=== PATIENT | female | born 1940 | race Caucasian/White ===

== ENCOUNTER 2018-02-11 09:44 | Outpatient (REF) | payer MEDICARE, SELFPAY ==
[2018-02-11 21:10] LABS: Hemoglobin A1C 6.4 % (4.5-6.2)
[2018-02-11 21:45] LABS: ALT 30 U/L (12-78); AST 28 U/L (15-37); Alkaline Phosphatase 64 U/L (46-116); Anion Gap 11.4 mmol/L (3-11); BUN 17 mg/dL (7-18); Bilirubin, Total 0.4 mg/dL (0.2-1.0); CO2 24.6 mmol/L (21.0-32.0); CREATININE 1.04 mg/dL (0.55-1.02); Calcium 8.7 mg/dL (8.5-10.1); Chloride 101 mmol/L (98-107); Cholesterol 179 mg/dL (50-200); Estimated GFR 51.25 (mL/min/1.73m2); Glucose 113 mg/dL (70-100); HDL Cholesterol 44 mg/dL (40-60); LDL CHOLESTEROL 101 mg/dL (<100); Potassium 4.5 mmol/L (3.5-5.1); Sodium 137 mmol/L (136-145); Total Protein 6.9 g/dL (6.4-8.2); Triglyceride 205 mg/dL (30-150)
== END 2018-02-11 09:45 ==
LOC: NCHCN 09:44
PROVIDERS: PCP Family Medicine; Visit Provider Family Medicine
DX: E78.5 Hyperlipidemia, unspecified (principal); R73.09 Other abnormal glucose; E88.81 Metabolic syndrome and other insulin resistance; I10 Essential (primary) hypertension; E66.9 Obesity, unspecified
CPT/HCPCS: 80053; 80061; 83721; 83036

== ENCOUNTER 2018-05-27 09:29 | Outpatient (REF) | payer MEDICARE, SELFPAY ==
[2018-05-27 22:43] LABS: Anion Gap 9.6 mmol/L (3-11); BUN 19 mg/dL (7-18); CO2 26.4 mmol/L (21.0-32.0); CREATININE 0.93 mg/dL (0.55-1.02); Calcium 9.6 mg/dL (8.5-10.1); Chloride 98 mmol/L (98-107); Cholesterol 269 mg/dL (50-200); Estimated GFR 58.31 (mL/min/1.73m2); Glucose 107 mg/dL (70-100); HDL Cholesterol 42 mg/dL (40-60); LDL CHOLESTEROL 177 mg/dL (<100); Potassium 4.6 mmol/L (3.5-5.1); Sodium 134 mmol/L (136-145); Triglyceride 254 mg/dL (30-150)
== END 2018-05-27 09:49 ==
LOC: NCHCN 09:29
PROVIDERS: PCP Family Medicine; Visit Provider Family Medicine
DX: R73.09 Other abnormal glucose (principal); E78.5 Hyperlipidemia, unspecified; I10 Essential (primary) hypertension; E66.9 Obesity, unspecified
CPT/HCPCS: 80048; 80061; 83721; 83036

== ENCOUNTER 2019-05-27 10:16 | Outpatient (REF) | payer MEDICARE, SELFPAY ==
[2019-05-27 22:39] LABS: Anion Gap 10.4 mmol/L (3-11); BUN 18 mg/dL (7-18); CO2 26.6 mmol/L (21.0-32.0); CREATININE 0.94 mg/dL (0.55-1.02); Calcium 9.2 mg/dL (8.5-10.1); Chloride 100 mmol/L (98-107); Estimated GFR 57.44 (mL/min/1.73m2); Glucose 112 mg/dL (74-106); Potassium 4.6 mmol/L (3.5-5.1); Sodium 137 mmol/L (136-145)
[2019-05-27 22:52] LABS: Hemoglobin A1C 6.2 % (4.5-6.2)
[2019-05-28 10:18] LABS: Calculated LDL 170 mg/dL; Cholesterol 254 mg/dL (<200); HDL Cholesterol 44 mg/dL (40-60); Triglyceride 202 mg/dL (<150)
== END 2019-05-27 10:36 ==
LOC: NCHCN 10:16
PROVIDERS: PCP Family Medicine; Visit Provider Family Medicine
DX: E78.5 Hyperlipidemia, unspecified (principal); I10 Essential (primary) hypertension
CPT/HCPCS: 80048; 80061; 83036

== ENCOUNTER 2020-06-29 09:07 | Outpatient (REF) | payer MEDICARE, SELFPAY ==
[2020-06-29 22:45] LABS: Hemoglobin A1C 5.7 % (<5.7)
[2020-06-29 22:58] LABS: Anion Gap 8.4 mmol/L (3-11); BUN 22 mg/dL (7-18); CO2 27.6 mmol/L (21.0-32.0); Calcium 9.5 mg/dL (8.5-10.1); Calculated LDL 165 mg/dL (<100); Chloride 101 mmol/L (98-107); Cholesterol 255 mg/dL (<200); Glucose 102 mg/dL (74-106); HDL Cholesterol 50 mg/dL (40-60); Potassium 4.4 mmol/L (3.5-5.1); Sodium 137 mmol/L (136-145); Triglyceride 200 mg/dL (<150)
== END 2020-06-29 09:27 ==
LOC: NCHCN 09:07
PROVIDERS: PCP Family Medicine; Visit Provider Family Medicine
DX: I10 Essential (primary) hypertension (principal); R73.03 Prediabetes; E78.5 Hyperlipidemia, unspecified; E88.81 Metabolic syndrome and other insulin resistance
CPT/HCPCS: 80048; 80061; 83036

== ENCOUNTER 2020-11-14 14:09 | Outpatient (REF) | payer MEDICARE, SELFPAY ==
[2020-11-14 14:10] LABS: ALT 28 U/L (14-59); AST 21 U/L (15-37); Albumin 4.1 g/dL (3.4-5.0); Alkaline Phosphatase 65 U/L (46-116); Anion Gap 8.9 mmol/L (3-11); BUN 20 mg/dL (7-18); Bilirubin, Total 0.4 mg/dL (0.2-1.0); CO2 28.1 mmol/L (21.0-32.0); CREATININE 0.8 mg/dL (0.55-1.02); Calcium 9.5 mg/dL (8.5-10.1); Calculated LDL 92 mg/dL (<100); Chloride 101 mmol/L (98-107); Cholesterol 173 mg/dL (<200); Glucose 103 mg/dL (74-106); HDL Cholesterol 53 mg/dL (40-60); Potassium 4.6 mmol/L (3.5-5.1); Sodium 138 mmol/L (136-145); Total Protein 7.1 g/dL (6.4-8.2); Triglyceride 143 mg/dL (<150)
== END 2020-11-14 14:10 | disposition home or self-care (01) ==
LOC: NCHCN 14:09
PROVIDERS: PCP Family Medicine; Visit Provider Family Medicine
DX: E78.5 Hyperlipidemia, unspecified (principal)
CPT/HCPCS: 80053; 80061

== ENCOUNTER 2021-09-08 17:42 | Outpatient (REF) | payer MEDICARE, SELFPAY ==
[2021-09-08 16:39] LABS: ALT 30 U/L (14-59); AST 26 U/L (15-37); Albumin 4.2 g/dL (3.4-5.0); Alkaline Phosphatase 74 U/L (46-116); Anion Gap 10.4 mmol/L (3-11); BUN 20 mg/dL (7-18); Bilirubin, Total 0.3 mg/dL (0.2-1.0); CO2 26.6 mmol/L (21.0-32.0); CREATININE 0.9 mg/dL (0.55-1.02); Calcium 9.6 mg/dL (8.5-10.1); Calculated LDL 106 mg/dL (<100); Chloride 102 mmol/L (98-107); Cholesterol 198 mg/dL (<200); Glucose 104 mg/dL (74-106); HDL Cholesterol 52 mg/dL (40-60); Potassium 4.9 mmol/L (3.5-5.1); Sodium 139 mmol/L (136-145); Total Protein 7.5 g/dL (6.4-8.2); Triglyceride 203 mg/dL (<150)
[2021-09-08 16:41] LABS: Hemoglobin A1C 6.1 % (<5.7)
== END 2021-09-08 17:43 | disposition home or self-care (01) ==
LOC: NCHCN 17:42
PROVIDERS: PCP Family Medicine; Visit Provider Family Medicine
DX: E88.81 Metabolic syndrome and other insulin resistance (principal); R73.03 Prediabetes; I10 Essential (primary) hypertension; E78.5 Hyperlipidemia, unspecified
CPT/HCPCS: 80053; 80061; 83036

== ENCOUNTER 2022-01-22 18:26 | Outpatient (REF) | payer MEDICARE, SELFPAY ==
[2022-01-22 21:58] LABS: Abs Immature Grans 0.05 10^3/uL (0.0-0.06); Absolute Basophil Count 0.11 10^3/uL (0.0-0.2); Absolute Lymphocyte Count 4.96 10^3/uL (1.2-3.4); Absolute Monocyte Count 1.57 10^3/uL (0.1-0.8); Absolute Neutrophil Count 8.19 10^3/uL (1.2-6.7); Basophils % 0.7; Eosinophils % 1.7; HCT 39.9 % (36.0-46.0); HGB 13.6 g/dL (11.2-15.7); Immature Grans % 0.3; Lymphocytes % 32.8; MCH 31.6 pg (27.0-33.0); MCHC 34.1 % (32.0-36.0); MCV 93 fL (80-95); MPV 12.9 fL (8.0-11.0); Monocytes % 10.4; Neutrophils % 54.1; Platelet Count 171 10^3/uL (130-400); RBC 4.31 10^6/uL (3.93-5.22); RDW 13.1 % (11.7-14.6); RDW-SD 44.8 fL; WBC 15.13 10^3/uL (4.4-10.8)
[2022-01-22 22:03] LABS: Absolute Eosinophil Count 0.26 10^3/uL (0.0-0.7)
[2022-01-22 22:08] LABS: ALT 31 U/L (14-59); AST 29 U/L (15-37); Albumin 3.8 g/dL (3.4-5.0); Alkaline Phosphatase 59 U/L (46-116); Anion Gap 4.9 mmol/L (3-11); BUN 25 mg/dL (7-18); Bilirubin, Total 0.2 mg/dL (0.2-1.0); CO2 28.1 mmol/L (21.0-32.0); CREATININE 1.1 mg/dL (0.55-1.02); Calcium 9.2 mg/dL (8.5-10.1); Chloride 101 mmol/L (98-107); Estimated GFR 47.55 (mL/min/1.73m2); Glucose 120 mg/dL (74-106); Lipase 76 U/L (73-393); Potassium 4.6 mmol/L (3.5-5.1); Sodium 134 mmol/L (136-145)
[2022-01-22 22:25] LABS: Diff Comment Agrees w/ Instrument; RBC Morphology Normal
== END 2022-01-22 18:27 | disposition home or self-care (01) ==
LOC: NCHCN 18:26
PROVIDERS: PCP Family Medicine; Visit Provider Family Medicine
DX: K92.1 Melena (principal); R14.1 Gas pain; R14.0 Abdominal distension (gaseous); K21.9 Gastro-esophageal reflux disease without esophagitis
CPT/HCPCS: 80053; 83690; 85025

== ENCOUNTER 2022-01-24 18:58 | Outpatient (REF) | payer MEDICARE, SELFPAY ==
[2022-01-25 23:37] LABS: Campylobacter PCR Negative (Negative); Salmonella PCR Negative (Negative); Shiga Toxin PCR Negative (Negative); Shigella/Enteroinvasive Ecoli Negative (Negative)
== END 2022-01-24 18:59 | disposition home or self-care (01) ==
LOC: NCHCN 18:58
PROVIDERS: PCP Family Medicine; Visit Provider Family Medicine
DX: K92.1 Melena (principal); R14.0 Abdominal distension (gaseous); R14.1 Gas pain; K21.9 Gastro-esophageal reflux disease without esophagitis
CPT/HCPCS: 87505; 82272; 83630

== ENCOUNTER 2022-03-13 19:51 | Outpatient (REF) | payer MEDICARE, SELFPAY ==
[2022-03-13 14:23] LABS: ESR 28 mm/hr (0-30)
[2022-03-13 14:28] LABS: Anion Gap 7.4 mmol/L (3-11); BUN 19 mg/dL (7-18); C-Reactive Protein 0.65 mg/dL (0.0-0.3); CO2 27.6 mmol/L (21.0-32.0); CREATININE 1.1 mg/dL (0.55-1.02); Calcium 9.1 mg/dL (8.5-10.1); Chloride 98 mmol/L (98-107); Estimated GFR 50.17 (mL/min/1.73m2); Glucose 120 mg/dL (74-106); Potassium 4.1 mmol/L (3.5-5.1); Sodium 133 mmol/L (136-145)
== END 2022-03-13 19:52 | disposition home or self-care (01) ==
LOC: NCHCN 19:51
PROVIDERS: PCP Family Medicine; Visit Provider Family Medicine
DX: I10 Essential (primary) hypertension (principal); M35.3 Polymyalgia rheumatica
CPT/HCPCS: 80048; 85652; 86140

== ENCOUNTER 2022-04-12 13:20 | Outpatient (REF) | payer MEDICARE, SELFPAY ==
[2022-04-12 16:18] LABS: ESR 11 mm/hr (0-30)
[2022-04-12 16:30] LABS: C-Reactive Protein 0.11 mg/dL (0.0-0.3)
== END 2022-04-12 13:21 | disposition home or self-care (01) ==
LOC: NCHCN 13:20
PROVIDERS: PCP Family Medicine; Visit Provider Family Medicine
DX: M35.3 Polymyalgia rheumatica (principal)
CPT/HCPCS: 85652; 86140

== ENCOUNTER 2022-06-08 15:01 | Outpatient (REF) | payer MEDICARE, SELFPAY ==
[2022-06-08 16:34] LABS: ESR 9 mm/hr (0-30)
[2022-06-08 16:44] LABS: C-Reactive Protein 0.29 mg/dL (0.0-0.3)
== END 2022-06-08 15:02 | disposition home or self-care (01) ==
LOC: NCHCN 15:01
PROVIDERS: PCP Family Medicine; Visit Provider Family Medicine
DX: M35.3 Polymyalgia rheumatica (principal)
CPT/HCPCS: 85652; 86140

== ENCOUNTER 2022-09-20 15:39 | Outpatient (REF) | payer MEDICARE, SELFPAY ==
[2022-09-20 14:25] LABS: HCT 40.5 % (36.0-46.0); HGB 13.4 g/dL (11.2-15.7); MCH 32.3 pg (27.0-33.0); MCHC 33.1 % (32.0-36.0); MCV 98 fL (80-95); MPV 11.8 fL (8.0-11.0); Platelet Count 201 10^3/uL (130-400); RBC 4.15 10^6/uL (3.93-5.22); RDW 13.1 % (11.7-14.6); RDW-SD 46.8 fL
[2022-09-20 14:38] LABS: ESR 12 mm/hr (0-30)
[2022-09-20 15:19] LABS: ALT 37 U/L (14-59); AST 25 U/L (15-37); Alkaline Phosphatase 51 U/L (46-116); Anion Gap 8.9 mmol/L (3-11); BUN 20 mg/dL (7-18); Bilirubin, Total 0.3 mg/dL (0.2-1.0); CO2 26.1 mmol/L (21.0-32.0); CREATININE 0.9 mg/dL (0.55-1.02); Calcium 9.7 mg/dL (8.5-10.1); Chloride 102 mmol/L (98-107); Estimated GFR 63.83 (mL/min/1.73m2); Folate 15.4 ng/mL (8.6-20.0); Glucose 136 mg/dL (74-106); Potassium 4.8 mmol/L (3.5-5.1); Sodium 137 mmol/L (136-145); Total Protein 7.1 g/dL (6.4-8.2); Vitamin B12 587 pg/mL (193-986)
[2022-09-20 15:26] LABS: C-Reactive Protein 0.14 mg/dL (0.0-0.3)
[2022-09-20 17:09] LABS: Hemoglobin A1C 6.4 % (<5.7)
== END 2022-09-20 15:40 | disposition home or self-care (01) ==
LOC: NCHCN 15:39
PROVIDERS: PCP Family Medicine; Visit Provider Family Medicine
DX: R73.03 Prediabetes (principal); E78.5 Hyperlipidemia, unspecified; M35.3 Polymyalgia rheumatica; D75.89 Other specified diseases of blood and blood-forming organs; Z86.39 Personal history of other endocrine, nutritional and metabolic disease
CPT/HCPCS: 80053; 85027; 85652; 82607; 82746; 83036; 86140

== ENCOUNTER 2023-04-09 20:38 | Outpatient (REF) | payer MEDICARE, SELFPAY ==
--- OUTSIDE RECORDS SUMMARY | 2023-04-09 20:39 | XMS_ITS | CCD ---
Author Name Unknown Address [address] [place] [address] [id number] Organization Unknown Address [address] [place] [address] [phone] Care Team Providers Care Manager Of Procurement Name Role Phone NAVEEN REDMAN Attending Physician [phone] ALIDA LING Er Physician 1 [phone] SUNSHINE Estrada Registered Nurse [phone] Vital Signs Vital Sign Value Unit Date/Time Recent/Initial ? BMI (Body Mass Index) 28.91 kg/m^2 02/23/2022 08: 07 Initial VS Weight Measured 158.07 lbs 02/23/2022 08:07 Ini tial VS Height 62 in 02/23/2022 08:07 Initial VS BSA (Body Surface Area) 1.77 m^2 02/23/2022 0 8:07 Initial VS BP Systolic 132 mmHg 02/23/2022 08:07 Initial VS BP Diastolic 81 mmHg 02/23/2022 08:07 Initia l VS Respiratory Rate 99 bpm 02/23/2022 08:07 In itial VS Heart Rate 74 bpm 02/23/2022 08:07 Initial VS O2 % BldC Oximetry 100 % 02/23/2022 08:07 Initial VS Body Temperature 36 degrees 02/23/2022 08:07 In itial VS BP Systolic 141 mmHg 02/23/2022 14:00 Most Re cent VS BP Diastolic 59 mmHg 02/23/2022 14:00 Most R ecent VS Respiratory Rate 18 bpm 02/23/2022 14:[address] Recent VS Heart Rate 70 bpm 02/23/2022 14:00 Most Rec ent VS O2 % BldC Oximetry 97 % 02/23/2022 14:00 Most Recent VS Allergies Allergy Code Allergy Type Reaction Status ASPIRIN 0 Drug allergy Active Procedures Unknown or Not Available. History of Immunizations Unknown or Not Available. 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 2 BILIRUBIN TOTAL 1975-2 0.4 mg/dL L=0.0 H=1 .3 ALK. PHOS. 6768-6 70 U/L L=46 H=116 SGOT (AST) 1920-8 21 U/L L=15 H=37 SGPT (ALT) 1742-6 25 U/L L=12 H=78 TOTAL PROTEIN 2885-2 7.9 gm/dL L=6.0 H=8.0 ALBUMIN 1751-7 4.0 gm/dL L=3.4 H=5.0 AGE 81 years eGFR (non-Afr.Amer.) 88924-9 64 mL/min eGFR (Afr-Bangladeshi) 94661-4 77 mL/min MAGNESIUM SERUM* - Collect D ate/Time: 02/23/2022 08:38 Test Name Code Test Result Test Units Test Ref Rang e MAGNESIUM 93693-8 2.2 mg/dL L=1.8 H=2.4 TROPONIN HIGH SENSITIVITY* - Collect Date/Time: 02/23/2022 13:14 Test Name Code Test Result Test Units Test Ref Rang e TROPONIN HS 5.5 pg/mL L=0.0 H=60.4 Specimen seq. Random N/A TROPONIN HIGH SENSITIVITY* - Collect Date/Time: 02/23/2022 08:38 Test Name Code Test Result Test Units Test Ref Rang e TROPONIN HS 5.1 pg/mL L=0.0 H=60.4 Specimen seq. Random N/A CBC W/ DIFFERENTIAL* - Colle ct Date/Time: 02/23/2022 08:38 Test Name Code Test Result Test Units Test Ref Rang e WBC 6690-2 16.11 th/cmm L=5.00 H=10.00 NEUT % 72.4 % L=40.0 H=80.0 LYMPH % 15.8 % L=10.0 H=50.0 MONO % 12894-0 10.1 % L=2.0 H=12.0 EOS % 0.9 % L=0.0 H=8.0 BASO % 0.4 % L=0.0 H=3.0 IG % 2514-8 0.4 % L=0.0 H=1.1 NRBC % 69968-9 0.0 % L=0.0 H=0.0 NEUT abs count 751-8 11.7 th/cmm L=1.6 H=8. 4 LYMPH abs count 731-0 2.6 th/cmm L=1.5 H=4 .0 MONO abs count 742-7 1.6 th/cmm L=0.2 H=1. 0 EOS abs count 711-2 0.1 th/cmm L=0.0 H=0.5 BASO abs count 704-7 0.1 th/cmm L=0.0 H=0. 2 IG abs count 78230-4 0.1 th/cmm L=0.0 H=0.1 NRBC abs count 32254-5 0.0 mil/cmm L=0.0 H=0. 0 RBC 789-8 4.53 mil/cmm L=3.90 H=5.40 HEMOGLOBIN 718-7 14.2 gm/dL L=12.0 H=16.0 HEMATOCRIT 4544-3 42 % L=37 H=47 MCV 787-2 93 fL L=82 H=92 MCH 785-6 31.3 pg L=27.0 H=31.0 MCHC 786-4 33.6 % L=32.0 H=36.0 RDW-SD 788-0 45.1 fL L=39.0 H=49.0 PLATELET COUNT 777-3 393 th/cmm L=150 H=45 0 ANNIE COVID FLU RSV GENEXPE RT - Collect Date/Time: 02/23/2022 08:38 Test Name Code Test Result Test Units Test Ref Rang e COVID 81264-9 NEGATIVE N/A Normal: Negati ve INFLUENZA A DNA 95065-5 NEGATIVE N/A Normal: N egative INFLUENZA B DNA 59782-9 NEGATIVE N/A Normal: N egative RSV DNA 80158-5 NEGATIVE N/A Normal: Negati ve URINALYSIS WITH REFLEX CULT IF POSITIVE* - Collect Date/Time: 02/23/2022 11:35 Test Name Code Test Result Test Units Test Ref Rang e COLLECTION MODE: 22184-8 CLEAN CATCH N/A Color 5778-6 STRAW N/A yellow Appearance 5767-9 CLEAR N/A clear Glucose urine 65798-2 NEGATIVE N/A negative mg /dl Bilirubin 5770-3 NEGATIVE N/A negative Ketones 2514-8 NEGATIVE N/A negative mg/dl Spec gravity 5811-5 <=1.005 N/A 1.003 - 1.03 0 pH urine 2756-5 6.0 N/A 5.0 - 7.0 Protein 49367-9 NEGATIVE N/A negative mg/dl Urobilinogen 82027-3 0.2 N/A <or= 1 EU/dl Nitrite. 5802-4 NEGATIVE N/A negative Blood 5794-3 NEGATIVE N/A negative Leukocytes. TRACE N/A negative MICROSCOPIC INDICATED N/A WBCs. 62614-9 0-5 N/A 0-5 / hpf RBCs 17816-2 none N/A 0-5 / hpf Epith cells 29078-1 0-5 N/A 0-5 / hpf Cell types squamous N/A Crystals none N/A none Bacteria minimal N/A none Mucus 8247-9 none N/A none Casts 66022-0 none N/A none /lpf Active Medications Unknown or Not Available. Medications Administered During Visit Unknown or Not Available. Encounters Encounter Diagnosis Diagnosis Code Start Date Weakness R531 02/23/2022 Social History Smoking Status Code Start Date End Date Never smoker [id number] Patient Decision Aids Unknown or Not Available. Discharge Instructions You were admitted to [facility] on 02/23/2022 07:52 with a principal diagnosis of Weakness You had the following tests done:TROPONIN HIGH SENSITIVITY*URINALYSIS WITH REFLEX CULT IF POSITIVE*CBC W/ DIFFERENTIAL*COMPREHENSIVE METABOLIC PANEL (CMP)[facility] COVID FLU RSV GENEXPERTMAGNESIUM SERUM*TROPONIN HIGH SENSITIVITY* You were discharged from [facility] on 02/23/2022 16:00 Should you have any questions prior to discharge, please contact a member of your healthcare team. If you have left the hospital and have any questions, please contact your primary care physician. Chief Complaint and Reason For Visit Chief Complaint Date of Onset SOB Function Status Unknown or Not Available. Plan of Care Unknown or Not Available. Referral/Transition of Care Unknown or Not Available.
--- OUTSIDE RECORDS SUMMARY | 2023-04-09 20:40 | XMS_ITS | CCD ---
Author Name Unknown Address [address] [place] [address] [phone] Organization Unknown Address [address] [place] [address] [phone] Care Team Providers Care Receiving Inspector Name Role Phone IRON RAMOS Attending Physician [phone] IRON RAMOS Er Physician 6 [phone] NIKHIL Villanueva Registered Nurse [phone] Vital Signs Vital Sign Value Unit Date/Time Recent/Initial ? BMI (Body Mass Index) 29.85 kg/m^2 03/07/2022 08: 02 Initial VS Weight Measured 158 lbs 03/07/2022 08:02 Ini tial VS Height 61 in 03/07/2022 08:02 Initial VS BSA (Body Surface Area) 1.76 m^2 03/07/2022 0 8:02 Initial VS BP Systolic 168 mmHg 03/07/2022 08:02 Initial VS BP Diastolic 70 mmHg 03/07/2022 08:02 Initia l VS Respiratory Rate 20 bpm 03/07/2022 08:02 In itial VS Heart Rate 81 bpm 03/07/2022 08:02 Initial VS O2 % BldC Oximetry 98 % 03/07/2022 08:02 Initial VS Body Temperature 37.2 degrees 03/07/2022 08:02 In itial VS BP Systolic 144 mmHg 03/07/2022 11:02 Most Re cent VS BP Diastolic 54 mmHg 03/07/2022 11:02 Most R ecent VS Respiratory Rate 20 bpm 03/07/2022 11:[address] Recent VS Heart Rate 76 bpm 03/07/2022 11:02 Most Rec ent VS O2 % BldC Oximetry 98 % 03/07/2022 11:02 Most Recent VS Allergies Allergy Code Allergy Type Reaction Status ASPIRIN 0 Drug allergy Active Procedures Unknown or Not Available. History of Immunizations Unknown or Not Available. 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 11756-8 47.81 mg/L L=0.00 H=3 .00 CRP-HIGH SENS 88296-8 4.78 mg/dL L=0.00 H=0. 30 COMPREHENSIVE METABOLIC PANE L (CMP) - Collect Date/Time: 03/07/2022 09:42 Test Name Code Test Result Test Units Test Ref Rang e GLUCOSE 2345-7 115 mg/dL L=70 H=116 BUN 3094-0 15 mg/dL L=6 H=25 CREATININE 2160-0 0.77 mg/dL L=0.51 H=0.95 SODIUM SERUM 2951-2 133 mmol/L L=136 H=145 POTASSIUM SERUM 2823-3 3.9 mmol/L L=3.4 H=5 .2 CHLORIDE SERUM 2075-0 97 mmol/L L=96 H=110 CARBON DIOXIDE (CO2) 2028-9 26 mmol/L L=22 H=34 ANION GAP 34242-1 9.9 mmol/L CALCIUM SERUM 80815-0 9.2 mg/dL L=8.2 H=10. 2 BILIRUBIN TOTAL 1975-2 0.3 mg/dL L=0.0 H=1 .3 ALK. PHOS. 6768-6 72 U/L L=46 H=116 SGOT (AST) 1920-8 18 U/L L=15 H=37 SGPT (ALT) 1742-6 26 U/L L=12 H=78 TOTAL PROTEIN 2885-2 7.4 gm/dL L=6.0 H=8.0 ALBUMIN 1751-7 3.6 gm/dL L=3.4 H=5.0 AGE 81 years eGFR (non-Afr.Amer.) 16147-8 72 mL/min eGFR (Afr-Turkmen) 27892-1 87 mL/min MAGNESIUM SERUM* - Collect D ate/Time: 03/07/2022 09:42 Test Name Code Test Result Test Units Test Ref Rang e MAGNESIUM 19187-4 2.2 mg/dL L=1.8 H=2.4 TROPONIN HIGH SENSITIVITY* - Collect Date/Time: 03/07/2022 09:42 Test Name Code Test Result Test Units Test Ref Rang e TROPONIN HS 5.9 pg/mL L=0.0 H=60.4 Specimen seq. ADM. N/A TSH THYROID STIMULATING HORM ONE* - Collect Date/Time: 03/07/2022 09:42 Test Name Code Test Result Test Units Test Ref Rang e TSH 3014-8 1.651 uIU/mL L=0.360 H=3.74 0 CBC W/ DIFFERENTIAL* - Colle ct Date/Time: 03/07/2022 09:42 Test Name Code Test Result Test Units Test Ref Rang e WBC 6690-2 17.71 th/cmm L=5.00 H=10.00 NEUT % 70.9 % L=40.0 H=80.0 LYMPH % 16.3 % L=10.0 H=50.0 MONO % 05353-4 11.1 % L=2.0 H=12.0 EOS % 0.6 % L=0.0 H=8.0 BASO % 0.6 % L=0.0 H=3.0 IG % 2514-8 0.5 % L=0.0 H=1.1 NRBC % 98936-1 0.0 % L=0.0 H=0.0 NEUT abs count 751-8 12.6 th/cmm L=1.6 H=8. 4 LYMPH abs count 731-0 2.9 th/cmm L=1.5 H=4 .0 MONO abs count 742-7 2.0 th/cmm L=0.2 H=1. 0 EOS abs count 711-2 0.1 th/cmm L=0.0 H=0.5 BASO abs count 704-7 0.1 th/cmm L=0.0 H=0. 2 IG abs count 54590-1 0.1 th/cmm L=0.0 H=0.1 NRBC abs count 22054-0 0.0 mil/cmm L=0.0 H=0. 0 RBC 789-8 4.07 mil/cmm L=3.90 H=5.40 HEMOGLOBIN 718-7 12.9 gm/dL L=12.0 H=16.0 HEMATOCRIT 4544-3 38 % L=37 H=47 MCV 787-2 93 fL L=82 H=92 MCH 785-6 31.7 pg L=27.0 H=31.0 MCHC 786-4 34.2 % L=32.0 H=36.0 RDW-SD 788-0 44.1 fL L=39.0 H=49.0 PLATELET COUNT 777-3 452 th/cmm L=150 H=45 0 SED RATE* - Collect Date/Catracho e: 03/07/2022 09:42 Test Name Code Test Result Test Units Test Ref Rang e SED. RATE 4537-7 52 mm/hr L=0 H=30 URINALYSIS WITH REFLEX CULT IF POSITIVE* - Collect Date/Time: 03/07/2022 10:28 Test Name Code Test Result Test Units Test Ref Rang e COLLECTION MODE: 10299-8 CLEAN CATCH N/A Color 5778-6 STRAW N/A yellow Appearance 5767-9 CLEAR N/A clear Glucose urine 90716-4 NEGATIVE N/A negative mg /dl Bilirubin 5770-3 NEGATIVE N/A negative Ketones 2514-8 NEGATIVE N/A negative mg/dl Spec gravity 5811-5 <=1.005 N/A 1.003 - 1.03 0 pH urine 2756-5 6.5 N/A 5.0 - 7.0 Protein 27631-9 NEGATIVE N/A negative mg/dl Urobilinogen 09429-3 0.2 N/A <or= 1 EU/dl Nitrite. 5802-4 NEGATIVE N/A negative Blood 5794-3 NEGATIVE N/A negative Leukocytes. NEGATIVE N/A negative MICROSCOPIC NOT INDICAT N/A Active Medications Medications Administered During Visit Medication Dose Units Frequency Route Date/Time of Last Dose PredniSONE TABLET: 20MG 20 MG X1 PO 03/07/2022 11:39 Encounters Encounter Diagnosis Diagnosis Code Start Date Polymyalgia rheumatica M353 Social History Smoking Status Code Start Date End Date Never smoker [id number] Patient Decision Aids Unknown or Not Available. Discharge Instructions You were admitted to [facility] on 03/07/2022 08:01 with a principal diagnosis of Polymyalgia rheumatica You had the following tests done:URINALYSIS WITH REFLEX CULT IF POSITIVE*C REACTIVE PROTEIN HIGH SENSITIVITY*CBC W/ DIFFERENTIAL*COMPREHENSIVE METABOLIC PANEL (CMP)MAGNESIUM SERUM*SED RATE*TROPONIN HIGH SENSITIVITY*TSH THYROID STIMULATING HORMONE* You were discharged from [facility] on 03/07/2022 13:26 Should you have any questions prior to discharge, please contact a member of your healthcare team. If you have left the hospital and have any questions, please contact your primary care physician. Chief Complaint and Reason For Visit Chief Complaint Date of Onset PAIN GOING ACROSS SHOULDER DOWN BOTH ARM S Function Status Unknown or Not Available. Plan of Care Unknown or Not Available. Referral/Transition of Care Unknown or Not Available.
[2023-04-09 21:05] LABS: HCT 41.6 % (36.0-46.0); HGB 13.4 g/dL (11.2-15.7); MCH 31.2 pg (27.0-33.0); MCHC 32.2 % (32.0-36.0); MCV 97 fL (80-95); MPV 12.2 fL (8.0-11.0); Platelet Count 192 10^3/uL (130-400); RDW 14.1 % (11.7-14.6); RDW-SD 50.4 fL; WBC 12.65 10^3/uL (4.4-10.8)
[2023-04-09 21:38] LABS: TSH (W/Ref FT4) 1.13 uIU/mL (0.36-3.74)
[2023-04-09 22:12] LABS: Hemoglobin A1C 6.2 % (<5.7)
[2023-04-10 14:11] LABS: ESR (LRH) 15 mm/hr
[2023-04-10 17:54] LABS: CRP, High Sensitivity 2.39 mg/L (See Note)
== END 2023-04-09 20:39 | disposition home or self-care (01) ==
LOC: NCHCN 20:38
PROVIDERS: PCP Family Medicine; Visit Provider Family Medicine
DX: R73.03 Prediabetes (principal); R68.89 Other general symptoms and signs; M35.3 Polymyalgia rheumatica; E78.5 Hyperlipidemia, unspecified; I10 Essential (primary) hypertension
CPT/HCPCS: 85027; 85652; 86141; 83036; 84443; 86140

== ENCOUNTER 2023-09-03 11:31 | Outpatient (REF) | payer MEDICARE, SELFPAY ==
[2023-09-03 15:38] LABS: ALT 22 U/L (14-59); AST 21 U/L (15-37); Alkaline Phosphatase 71 U/L (46-116); Anion Gap 8.3 mmol/L (3-11); BUN 19 mg/dL (7-18); Bilirubin, Total 0.4 mg/dL (0.2-1.0); CO2 28.7 mmol/L (21.0-32.0); Calcium 9.9 mg/dL (8.5-10.1); Calculated LDL 150 mg/dL (<100); Chloride 103 mmol/L (98-107); Cholesterol 231 mg/dL (<200); Glucose 104 mg/dL (74-106); HDL Cholesterol 53 mg/dL (40-60); Potassium 4.9 mmol/L (3.5-5.1); Sodium 140 mmol/L (136-145); Total Protein 7.2 g/dL (6.4-8.2); Triglyceride 144 mg/dL (<150)
[2023-09-03 15:41] LABS: Hemoglobin A1C 5.6 % (<5.7)
== END 2023-09-03 11:32 | disposition home or self-care (01) ==
LOC: NCHCN 11:31
PROVIDERS: PCP Family Medicine; Referring Provider Family Medicine; Visit Provider Family Medicine
DX: E78.5 Hyperlipidemia, unspecified (principal); R73.03 Prediabetes
CPT/HCPCS: 80053; 80061; 83036

== ENCOUNTER 2023-12-04 15:14 | Outpatient (REF) | payer MEDICARE, SELFPAY ==
[2023-12-04 22:00] LABS: Abs Immature Grans 0.03 10^3/uL (0.0-0.06); Absolute Basophil Count 0.06 10^3/uL (0.0-0.2); Absolute Eosinophil Count 0.23 10^3/uL (0.0-0.7); Absolute Lymphocyte Count 2.48 10^3/uL (1.2-3.4); Absolute Monocyte Count 1.31 10^3/uL (0.1-0.8); Absolute Neutrophil Count 5.66 10^3/uL (1.2-6.7); Basophils % 0.6 %; Eosinophils % 2.4 %; HCT 40.5 % (36.0-46.0); HGB 13.7 g/dL (11.2-15.7); Immature Grans % 0.3 %; Lymphocytes % 25.4 %; MCH 31.6 pg (27.0-33.0); MCHC 33.8 % (32.0-36.0); MCV 93 fL (80-95); MPV 12.7 fL (8.0-11.0); Monocytes % 13.4 %; Neutrophils % 57.9 %; Platelet Count 167 10^3/uL (130-400); RBC 4.34 10^6/uL (3.93-5.22); RDW 13.2 % (11.7-14.6); RDW-SD 45.2 fL; WBC 9.77 10^3/uL (4.4-10.8)
[2023-12-04 22:15] LABS: ALT 29 U/L (14-59); AST 30 U/L (15-37); Albumin 4.4 g/dL (3.4-5.0); Alkaline Phosphatase 72 U/L (46-116); Anion Gap 8.8 mmol/L (3-11); BUN 19 mg/dL (7-18); Bilirubin, Total 0.3 mg/dL (0.2-1.0); CO2 26.2 mmol/L (21.0-32.0); CREATININE 1.2 mg/dL (0.55-1.02); Calcium 9.4 mg/dL (8.5-10.1); Chloride 94 mmol/L (98-107); Estimated GFR 44.91 (mL/min/1.73m2); Glucose 94 mg/dL (74-106); Lipase 25 U/L (16-77); Potassium 4.9 mmol/L (3.5-5.1); Sodium 129 mmol/L (136-145); TSH (W/Ref FT4) 2.07 uIU/mL (0.36-3.74); Total Protein 7.4 g/dL (6.4-8.2)
== END 2023-12-04 15:15 | disposition home or self-care (01) ==
LOC: NCHCN 15:14
PROVIDERS: PCP Family Medicine; Visit Provider Family Medicine
DX: R10.13 Epigastric pain (principal); R68.89 Other general symptoms and signs
CPT/HCPCS: 80053; 83690; 84443; 85025

== ENCOUNTER 2023-12-10 11:26 | Outpatient (REF) | payer MEDICARE, MEDICAID, SELFPAY ==
[2023-12-10 16:15] LABS: BUN 18 mg/dL (7-18); CREATININE 0.8 mg/dL (0.55-1.02); Calcium 9.6 mg/dL (8.5-10.1); Chloride 97 mmol/L (98-107); Estimated GFR 73.06 (mL/min/1.73m2); Glucose 109 mg/dL (74-106); Potassium 4.5 mmol/L (3.5-5.1); Sodium 133 mmol/L (136-145)
== END 2023-12-10 11:27 | disposition home or self-care (01) ==
LOC: NCHCN 11:26
PROVIDERS: PCP Family Medicine; Visit Provider Family Medicine
DX: E87.1 Hypo-osmolality and hyponatremia (principal)
CPT/HCPCS: 80048

== ENCOUNTER 2023-12-18 11:13 | Outpatient (REF) | payer MEDICARE, MEDICAID, SELFPAY ==
[2023-12-18 15:52] LABS: C Diff PCR Negative (Negative)
== END 2023-12-18 11:14 | disposition home or self-care (01) ==
LOC: NCHCN 11:13
PROVIDERS: PCP Family Medicine; Visit Provider Family Medicine
DX: R10.9 Unspecified abdominal pain (principal)
CPT/HCPCS: 87493

== ENCOUNTER 2024-11-03 13:02 | Outpatient (REF) | payer MEDICARE, MEDICAID, SELFPAY ==
[2024-11-03 14:32] LABS: Hemoglobin A1C 5.8 % (<5.7)
[2024-11-03 14:33] LABS: ALT 23 U/L (14-59); AST 25 U/L (15-37); Albumin 3.9 g/dL (3.4-5.0); Alkaline Phosphatase 88 U/L (46-116); Anion Gap 8.2 mmol/L (3-11); BUN 26 mg/dL (7-18); Bilirubin, Total 0.3 mg/dL (0.2-1.0); CO2 29.8 mmol/L (21.0-32.0); CREATININE 0.8 mg/dL (0.55-1.02); Calcium 9.5 mg/dL (8.5-10.1); Calculated LDL 143 mg/dL (<100); Chloride 102 mmol/L (98-107); Cholesterol 228 mg/dL (<200); Estimated GFR 72.61 (mL/min/1.73m2); Glucose 106 mg/dL (74-106); HDL Cholesterol 56 mg/dL (>or=50); Potassium 4.3 mmol/L (3.5-5.1); Sodium 140 mmol/L (136-145); Total Protein 7.2 g/dL (6.4-8.2); Triglyceride 147 mg/dL (<150)
== END 2024-11-03 13:03 | disposition home or self-care (01) ==
LOC: NCHCN 13:02
PROVIDERS: PCP Family Medicine; Visit Provider Family Medicine
DX: E78.49 Other hyperlipidemia; I10 Essential (primary) hypertension; R73.03 Prediabetes
CPT/HCPCS: 80053; 80061; 83036